=== PATIENT | female | born 1955 | race Caucasian/White ===

== ENCOUNTER → 2019-12-05 | Outpatient (CLI) | payer MEDICARE, OTHER ==
--- NOTE | 2019-12-06 02:00 | REP ---
REASON: Low back pain. Three AP and lateral views were obtained. There is degenerative disc space narrowing seen at L3-4 through L5-S1 inclusive, which is moderate. Minimal anterior lipping is seen at every level. There is a slight grade 1 potential superior endplate compression seen involving L2. There is tiny partial syndesmophyte formation seen bilaterally L3-4 through L5-S1. IMPRESSION: 1. Degenerative discogenic change, as described above. 2. Age-undetermined possible slight grade 1 superior endplate compression L2. Electronically Signed by Harshad So DO 12/06/2019 11:09 A
== END ==
LOC: M ADAMS 15:56
PROVIDERS: ATTEND Physician Assistant
DX: M54.5 Low back pain (principal)

== ENCOUNTER → 2020-11-06 | Outpatient (CLI) | payer MEDICARE, OTHER ==
--- NOTE | 2020-11-06 09:48 | REPMRS ---
Patient History The patient states she has not had a clinical breast exam in over a year. Patient is postmenopausal and has history of cancer in the left breast at age 51. Family history of breast cancer at age 55 in maternal aunt. No Hormone Replacement Therapy Patient states no breast complaints today. Patient has signed MRS History Sheet. Digital Woman Screen Mammo: November 06, 2020 - Exam #: [id number] Bilateral CC and MLO view(s) were taken. Technologist: Betty Westfall, Nurse Practitioner Manager FINDINGS: There are scattered fibroglandular densities. Screening. Digital screening (2D) mammography was performed bilaterally in the CC and MLO projections. Additionally, breast tomosynthesis (3D mammography) was performed bilaterally in the CC and MLO projections. Todays exam was compared to the prior exams.There are no prior DBT images for comparison. By history, the patient has no complaints of a palpable breast abnormality or other significant breast complaints. The breasts are unchanged in size and shape. There are no trav-soft tissue densities or spiculated masses. There is no internal architectural distortion. Once again, stable benign appearing calcifications are seen.There are no suspicious trav-calcific clusters. Skin thickening or nipple retraction is not present. IMPRESSION: BI-RADS Category 2- Benign Findings. There is no evidence of malignant alteration of the breasts. Followup examination recommended in one year. The Volpara volumetric breast density category is B, there are scattered areas of fibroglandular density. This mammogram was read with the assistance of mobiDEOS,an FDA approved computer aided detection system for mammography. Negative x-ray reports should not delay surgical consultation if a dominant or clinically suspicious mass is present. Not all breast cancers can be identified by mammography. Therefore, we recommend that you continue to perform regular breast self-examination and physical examination and then promptly contact your physician of any concerns or changes. Adenosis and dense breasts may obscure an underlying neoplasm. Assessment: BI-RADS/ACR category 2 mammogram. Benign Findings. Recommendation Routine screening mammogram of both breasts in 1 year. Electronically Signed By: Harshad So DO 11/06/20 0925
--- NOTE | 2020-11-06 10:04 | DEXAMM ---
INDICATION: M85.80 [facility] DISRD OF BONE DENSITY AND STRUCTURE. COMPARISON: 04/18/2011 as well as other prior exams. TECHNIQUE: Bone density was measured using dual-energy x-ray absorptiometry (DEXA). FINDINGS: AP SPINE L1-L4 BMD 0.920 g/cm2 Young Adult T-Score -2.2 Age Matched Z-Score -0.5. LT FEMUR, TOTAL BMD 0.872 g/cm2 Young Adult T-Score -1.1 Age Matched Z-Score 0.2. LT NECK BMD 0.808 g/cm2 Young Adult T-Score -1.7 Age Matched Z-Score -0.1. RT FEMUR, TOTAL BMD 0.887 g/cm2 Young Adult T-Score -1.0 Age Matched Z-Score 0.3. RT NECK BMD 0.809 g/cm2 Young Adult T-Score -1.6 Age Matched Z-Score -0.1. IMPRESSION: There is low bone density of the spine. There is low bone density of the left hip. There is low bone density of the right hip. The density of the spine has decreased 12.2% since the initial exam on 01/16/2004. The density of the spine decreased 10.3% since most recent exam on 04/18/2011. The density of the left hip has decreased 8.8% since initial exam on 01/16/2004. The density of the left hip has decreased 6.2% since most recent exam on 04/18/2011. The density of the right hip has decreased 11.1% since the initial exam on 01/16/2004. The density of the right hip has decreased 9.9% since the most recent exam on 04/18/2011. FOLLOW-UP: Recommendation for the next bone density exam: 2 years. <Electronically signed by Robert Grossman > 11/06/20 1000
== END ==
LOC: M WHC 07:51
PROVIDERS: ATTEND Family Medicine
DX: Z12.31 Encounter for screening mammogram for malignant neoplasm of breast (principal); M85.88 Other specified disorders of bone density and structure, other site; M85.851 Other specified disorders of bone density and structure, right thigh; M85.852 Other specified disorders of bone density and structure, left thigh; Z85.3 Personal history of malignant neoplasm of breast

== ENCOUNTER → 2021-05-06 | Outpatient (CLI) | payer MEDICARE, OTHER ==
--- NOTE | 2021-05-06 10:01 | REP ---
INDICATION: SMOKER. COMPARISON: CXR 01/06/2017, CT 10/17/2010. TECHNIQUE: Standard low-dose lung screening CT protocol. FINDINGS: Lung law are well inflated. Calcified granuloma in the anterior segment right upper lobe on image 45, unchanged. There is a large densely calcified granuloma in the left lower lobe medial basal segment with some curvilinear fibrotic change extending from it to the pleura, stable. Laterally in the right lower lobe on image 57 is another calcified granuloma, unchanged. Some curvilinear fibrosis is seen in the posterior basal segment of the right lower lobe unchanged. On image 30 in the right upper lobe laterally is a 6.9 x 4.7 mm noncalcified nodule which is new. No pleural plaque or calcified plaque, effusion, acute infiltrate, parenchymal mass or pneumothorax. IMPRESSION: Lung RADS category 4A, suspicious. Findings for which additional diagnostic testing is recommended. There is a new 6.9 x 4.7 mm noncalcified nodule in the right upper lobe on image 30 and with this previously clear region from a remote CT, additional imaging with a full chest CT (with contrast if possible) recommended. Patients with this category of findings have 15% or greater chance of malignancy at the time of the examination. <Electronically signed by Francisco Watson > 05/06/21 [id number]
== END ==
LOC: M RAD 08:49
PROVIDERS: ATTEND Family Medicine
DX: Z12.2 Encounter for screening for malignant neoplasm of respiratory organs (principal); F17.218 Nicotine dependence, cigarettes, with other nicotine-induced disorders

== ENCOUNTER → 2021-05-17 | Outpatient (CLI) | payer MEDICARE, OTHER ==
[~2021-05-17] MED LIST: ISOVUE-370 76% 100ML VIAL ONE
--- NOTE | 2021-05-17 14:26 | REP ---
INDICATION: LUNG NODULE COMPARISON: Multiple the latest 05/06/2021 a low-dose screening CT of the lungs the latest prior standard CT of the chest using helical technique was obtained 10/17/2010 TECHNIQUE: Standard helical technique after the intravenous administration of 100 cc Isovue 370 FINDINGS: There is no mediastinal or hilar adenopathy. There are no pleural or pericardial effusions. The imaged upper abdomen shows a partially imaged right renal cystic structure which measures a least 2.3 cm. The imaged osseous structures are within normal limits. Evaluation of the lung law shows a smoothly marginated 5 mm size nodule in the right upper lobe situated between 2 vessels. There are multiple parenchymal calcifications status quo. These are consistent with calcified granulomas and a calcified hamartoma in the left lower lobe. No new abnormal nodules, masses, or opacities have developed. There are stable curvilinear bibasilar densities consistent with chronic fibrotic and/or subsegmental atelectatic changes. IMPRESSION: 1. Right upper lobe nodule as described above. According to the revised Fleischner society criteria this represents a category 3 nodule for which a six-month follow-up CT chest is recommended. 2. Partially imaged right renal cystic structure for which complete evaluation is recommended with pre and postcontrast enhanced renal CT. 3. Other findings as described. <Electronically signed by Harshad So > 05/17/21 [id number]
== END ==
LOC: M PLAIMG 12:25
PROVIDERS: ATTEND Family Medicine
DX: R91.1 Solitary pulmonary nodule (principal); N28.1 Cyst of kidney, acquired
CPT/HCPCS: 71260; Q9967

== ENCOUNTER → 2021-06-03 | Outpatient (CLI) | payer MEDICARE, OTHER ==
--- NOTE | 2021-06-03 13:37 | REP ---
INDICATION: RT RENAL CYST. COMPARISON: None. TECHNIQUE: Real-time sonographic evaluation of the kidneys is performed. FINDINGS: Renal cortical echogenicity pattern is normal bilaterally and contours are smooth. There is no hydronephrosis bilaterally. There is a simple anechoic cyst in the mid right kidney measuring 2.8 x 2.1 x 2.3 cm. The right kidney measures 9.8 x 4.3 x 3.9 cm. Left renal dimensions are 11.1 x 4.8 x 5.8 cm. Urinary bladder is empty. IMPRESSION: Benign right renal cyst with a maximum diameter of 2.8 cm. No hydronephrosis. <Electronically signed by Robert Grossman > 06/03/21 [id number]
== END ==
LOC: M RAD 12:53
PROVIDERS: ATTEND Family Medicine
DX: N28.1 Cyst of kidney, acquired (principal)

== ENCOUNTER → 2021-11-13 | Outpatient (CLI) | payer MEDICARE, OTHER | LOC: M PLAIMG 08:39 | PROVIDERS: ATTEND Family Medicine | DX: R91.1 Solitary pulmonary nodule (principal) | CPT/HCPCS: 71260; Q9967 ==

== ENCOUNTER → 2022-06-20 | Outpatient (CLI) | payer MEDICARE, OTHER | LOC: M WHC 08:51 | PROVIDERS: ATTEND Family Medicine | DX: Z12.31 Encounter for screening mammogram for malignant neoplasm of breast (principal) ==

== ENCOUNTER → 2022-11-12 | Outpatient (CLI) | payer MEDICARE, OTHER | LOC: M WUC 11:28 | PROVIDERS: ATTEND Family Medicine | DX: M54.14 Radiculopathy, thoracic region (principal) ==

== ENCOUNTER 2023-02-02 06:58 | Inpatient (IN) | payer MEDICARE, OTHER ==
[~2023-02-02] VITALS: Ht 152.4 cm; Wt 72.3 kg
[2023-02-02] MEDS ORDERED: CETI-24 (07:08)
[2023-02-02] MEDS ORDERED: ATOR1TAB19 (07:08)
[2023-02-02 08:13] LABS: BASO # 0.1 10^3/uL (0.0-0.2); BASO % 0.6 % (0.0-1.0); EOS # 0.1 10^3/uL (0.0-0.5); EOS % 0.9 % (0.0-3.0); HEMATOCRIT 34.2 % (36.0-47.0); HEMOGLOBIN 10.9 g/dl (12.0-15.5); LYMPH % 18.8 % (24.0-44.0); MEAN CORPUSCULAR HEMOGLOBIN 29.9 pg (27.0-33.0); MEAN CORPUSCULAR HGB CONC 31.9 g/dl (32.0-36.5); MONO # 1.3 10^3/uL (0.0-0.8); MONO % 12.5 % (2.0-8.0); NEUTROPHILS % 66.6 % (36.0-66.0); PLATELET COUNT, AUTOMATED 505 10^3/uL (150-450); RED BLOOD COUNT 3.64 10^6/uL (4.00-5.40); WHITE BLOOD COUNT 10.5 10^3/uL (4.0-10.0)
[2023-02-02 08:44] LABS: CK-MB VALUE MASS < 1.0 NG/ML (<3.6)
[2023-02-02] MEDS ORDERED: IPRATROPIUM 0.5MG/ALBUTEROL 2.5MG INH SOL UD 3ML (DUONEB) NEB ONE (08:45)
[2023-02-02] MEDS ORDERED: ALBUTEROL SULFATE 2.5MG/0.5ML INH NEB SOLN INH ONE (08:45)
[2023-02-02 08:47] LABS: ALBUMIN 2.7 G/DL (3.2-5.2); ALKALINE PHOSPHATASE 158 U/L (46-116); ALT/SGPT 98 U/L (7.0-40); AST/SGOT 102 U/L (<34); BILIRUBIN,DIRECT 0.1 MG/DL (<0.4); BILIRUBIN,TOTAL 0.3 MG/DL (0.3-1.2); BLOOD UREA NITROGEN 15 MG/DL (9-23); CALCIUM LEVEL 8.4 MG/DL (8.3-10.6); CARBON DIOXIDE LEVEL 28 MMOL/L (20-31); CHLORIDE LEVEL 103 MMOL/L (98-107); CREATININE FOR GFR 0.56 MG/DL (0.55-1.30); GLOMERULAR FILTRATION RATE > 60.0 (>45); GLUCOSE, FASTING 126 MG/DL (74-106); POTASSIUM SERUM 4.4 MMOL/L (3.5-5.1); SODIUM LEVEL 138 MMOL/L (136-145); TOTAL PROTEIN 6.7 G/DL (5.7-8.2)
[2023-02-02 08:48] LABS: THYROID STIMULATING HORMONE 1.509 uIU/ML (0.55-4.78); THYROXINE (T4) 7.3 UG/DL (4.5-10.9)
[2023-02-02 08:49] LABS: CPK CREATINE PHOSPHOKINASE 67 U/L (34-145); MB/CK RELATIVE INDEX 1.49 (< OR =4)
[2023-02-02] MEDS ORDERED: predniSONE 20 MG TAB PO SCH (09:00)
[2023-02-02 09:23] VITALS: O2SAT 95
[2023-02-02 10:00] LABS: CK-MB VALUE MASS < 1.0 NG/ML (<3.6)
[2023-02-02 10:01] LABS: CPK CREATINE PHOSPHOKINASE 57 U/L (34-145); MB/CK RELATIVE INDEX 1.75 (< OR =4)
[2023-02-02] MEDS ORDERED: methylPREDNISolone 125MG 2ML VIAL IV ONE (12:00)
[2023-02-02] MEDS ORDERED: FUROSEMIDE 40MG/4ML VIAL IV ONE (12:00)
[2023-02-02] MEDS ORDERED: MED REC IN PROGRESS XX SCH (12:50)
[2023-02-02] MEDS ORDERED: LEVALBUTEROL HFA 45MCG/ACT 15GM INHALER INH PRN (14:50)
[2023-02-02 15:36] LABS: PROCALCITONIN 0.04 ng/ml
[2023-02-02] MEDS ORDERED: cefTRIAXone SOD 1 GM in D5W MINI-BAG PLUS 50 ML IV SCH (16:00)
[2023-02-02 16:48] VITALS: BP 124/71; TEMP 97; O2SAT 93
[2023-02-02] MEDS: AZITHROMYCIN 250MG TABLET PO SCH (18:02)
[2023-02-02] MEDS: FUROSEMIDE 20MG/2ML VIAL IV SCH (18:02)
[2023-02-02 19:40] VITALS: BP 104/54; TEMP 97.3; O2SAT 91
[2023-02-02] MEDS: IPRATROPIUM HFA INHALER 12.9 GRAMS (ATROVENT HFA) INH SCH (20:02)
[2023-02-02] MEDS ORDERED: CETI-24 PO (20:45)
[2023-02-02] MEDS ORDERED: ATOR1TAB19 PO (20:45)
[2023-02-02] MEDS ORDERED: HOME MED LIST COMPLETE! XX SCH (20:50)
[2023-02-02 23:37] VITALS: BP 97/55; TEMP 97.3; O2SAT 93
[2023-02-03] MEDS: IPRATROPIUM HFA INHALER 12.9 GRAMS (ATROVENT HFA) INH SCH ×3 (01:12→14:22)
[2023-02-03 03:50] VITALS: BP 101/56; TEMP 97.2; O2SAT 92
[2023-02-03 06:08] LABS: HEMATOCRIT 33.8 % (36.0-47.0); HEMOGLOBIN 10.9 g/dl (12.0-15.5); MEAN CORPUSCULAR HEMOGLOBIN 29.8 pg (27.0-33.0); MEAN CORPUSCULAR HGB CONC 32.2 g/dl (32.0-36.5); MEAN CORPUSCULAR VOLUME 92.3 fl (80.0-96.0); PLATELET COUNT, AUTOMATED 505 10^3/uL (150-450); RED BLOOD COUNT 3.66 10^6/uL (4.00-5.40); WHITE BLOOD COUNT 10.4 10^3/uL (4.0-10.0)
[2023-02-03 06:33] LABS: ALBUMIN 2.5 G/DL (3.2-5.2); ALKALINE PHOSPHATASE 136 U/L (46-116); ALT/SGPT 75 U/L (7.0-40); AST/SGOT 52 U/L (<34); BILIRUBIN,TOTAL 0.2 MG/DL (0.3-1.2); BLOOD UREA NITROGEN 25 MG/DL (9-23); CALCIUM LEVEL 8.5 MG/DL (8.3-10.6); CARBON DIOXIDE LEVEL 32 MMOL/L (20-31); CHLORIDE LEVEL 101 MMOL/L (98-107); CREATININE FOR GFR 0.65 MG/DL (0.55-1.30); GLOMERULAR FILTRATION RATE > 60.0 (>45); GLUCOSE, FASTING 120 MG/DL (74-106); POTASSIUM SERUM 4.6 MMOL/L (3.5-5.1); SODIUM LEVEL 141 MMOL/L (136-145); TOTAL PROTEIN 6.4 G/DL (5.7-8.2)
[2023-02-03 08:15] VITALS: BP 102/51; TEMP 96.5; O2SAT 94
[2023-02-03 08:51] LABS: HEPATITIS B CORE ANTIBODY IGM NEGATIVE (NEGATIVE); HEPATITIS C VIRUS ABY INDEX 0.17 INDEX (<0.8)
[2023-02-03] MEDS: AZITHROMYCIN 250MG TABLET PO SCH (08:59)
[2023-02-03] MEDS: FUROSEMIDE 20MG/2ML VIAL IV SCH (08:59)
[2023-02-03] MEDS ORDERED: ENOXAPARIN 40MG/0.4ML SYRINGE (J1650 PER 10MG) SC SCH (09:00)
[2023-02-03] MEDS ORDERED: predniSONE 20 MG TAB PO SCH (09:00)
[2023-02-03] MEDS ORDERED: FARX1TAB3 PO (11:11)
[2023-02-03] MEDS ORDERED: FURO40TA2 PO (11:11)
[2023-02-03 12:32] VITALS: BP 107/59; TEMP 96.3; O2SAT 90
[2023-02-05 15:08] LABS: BODY FLUID CULTURE Not indicated. (.); LEGIONELLA ANTIGEN URINE Negative (Negative); ORGANISM ID Not indicated. (.); SPECIMEN SOURCE Urine (.); URINE STREP PNEUMONIAE ANTIGEN Negative (Negative)
== END 2023-02-03 15:56 | disposition home or self-care (01) | DRG 189 ==
LOC: M ED 06:58 → M ED INP 14:03 → M PCU 16:35
PROVIDERS: ADMIT Internal Medicine; ATTEND Internal Medicine
DX: J96.01 Acute respiratory failure with hypoxia (principal); J18.9 Pneumonia, unspecified organism; I50.21 Acute systolic (congestive) heart failure; J45.909 Unspecified asthma, uncomplicated; R74.01 Elevation of levels of liver transaminase levels; E78.00 Pure hypercholesterolemia, unspecified; R91.8 Other nonspecific abnormal finding of lung field; R59.0 Localized enlarged lymph nodes; E27.8 Other specified disorders of adrenal gland; Z85.828 Personal history of other malignant neoplasm of skin; K76.1 Chronic passive congestion of liver; Z79.899 Other long term (current) drug therapy

== ENCOUNTER → 2023-07-10 | Outpatient (CLI) | payer MEDICARE, OTHER ==
[~2023-07-10] MED LIST changes: +ATOR1TAB19; +ATOR1TAB19 PO; +CETI-24; +CETI-24 PO; +FARX1TAB3 PO; +FURO40TA2 PO; -ISOVUE-370 76% 100ML VIAL ONE
== END ==
LOC: M WUC 09:07
PROVIDERS: ATTEND Nurse Practitioner Family
DX: M54.50 Low back pain, unspecified (principal)

== ENCOUNTER → 2023-09-21 | Outpatient (REF) | payer MEDICARE, OTHER | LOC: M LAB REF 11:35 | PROVIDERS: ATTEND Family Medicine | DX: J44.9 Chronic obstructive pulmonary disease, unspecified (principal); I50.9 Heart failure, unspecified ==

== ENCOUNTER → 2023-11-12 | Outpatient (CLI) | payer MEDICARE, OTHER | LOC: M WHC 10:23 | PROVIDERS: ATTEND Family Medicine | DX: Z12.31 Encounter for screening mammogram for malignant neoplasm of breast (principal); Z85.3 Personal history of malignant neoplasm of breast ==

== ENCOUNTER → 2023-12-03 | Outpatient (CLI) | payer MEDICARE, OTHER | LOC: M SOG 07:54 | PROVIDERS: ATTEND Physician Assistant | DX: M51.36 Other intervertebral disc degeneration, lumbar region (principal); M51.34 Other intervertebral disc degeneration, thoracic region; M85.88 Other specified disorders of bone density and structure, other site; M54.50 Low back pain, unspecified ==

== ENCOUNTER → 2024-01-13 | Outpatient (CLI) | payer MEDICARE, OTHER | LOC: M PLAIMG 14:33 | PROVIDERS: ATTEND Physician Assistant | DX: M54.41 Lumbago with sciatica, right side (principal); M47.896 Other spondylosis, lumbar region ==

== ENCOUNTER → 2024-09-20 | Outpatient (REF) | payer MEDICARE, OTHER | LOC: M LAB REF 12:11 | PROVIDERS: ATTEND Family Medicine | DX: I50.22 Chronic systolic (congestive) heart failure (principal) ==

== ENCOUNTER 2025-04-25 09:55 | Inpatient (IN) | payer MEDICARE, OTHER ==
[~2025-04-25] VITALS: Ht 152.4 cm; Wt 86.3 kg
[2025-04-25] MEDS ORDERED: SERT-141 PO (12:20)
[2025-04-25] MEDS ORDERED: ENTR1TAB7 PO (12:22)
[2025-04-25] MEDS ORDERED: CARV3.12 PO (12:22)
[2025-04-25] MEDS ORDERED: TREL1AER PO (12:22)
[2025-04-25 14:07] LABS: BASO # 0.0 10^3/uL (0.0-0.2); BASO % 0.5 % (0.0-1.0); EOS # 0.3 10^3/uL (0.0-0.5); EOS % 3.3 % (0.0-3.0); LYMPH # 2.1 10^3/uL (1.5-5.0); LYMPH % 24.2 % (24.0-44.0); MONO # 1.4 10^3/uL (0.0-0.8); MONO % 16.0 % (2.0-8.0); NEUTROPHILS # 4.9 10^3/uL (1.5-8.5); NEUTROPHILS % 55.7 % (36.0-66.0); PLATELET COUNT, AUTOMATED 529 10^3/uL (150-450)
[2025-04-25 14:10] VITALS: O2SAT 97
[2025-04-25 14:29] LABS: CALCIUM LEVEL 9.2 MG/DL (8.3-10.6); CARBON DIOXIDE LEVEL 32 MMOL/L (20-31); CHLORIDE LEVEL 98 MMOL/L (98-107); CREATININE FOR GFR 0.61 MG/DL (0.55-1.30); GLOMERULAR FILTRATION RATE > 90.0 (>39); POTASSIUM SERUM 4.6 MMOL/L (3.5-5.1); SODIUM LEVEL 138 MMOL/L (136-145)
[2025-04-25] MEDS ORDERED: VENTAER INH (15:25)
[2025-04-25] MEDS ORDERED: ALBU2.5V10 INH (15:25)
[2025-04-25] MEDS ORDERED: FLUT1BLS8 INH (15:25)
[2025-04-25] MEDS ORDERED: VITA100093 PO (15:25)
[2025-04-25] MEDS ORDERED: FURO40TA2 PO (15:25)
[2025-04-25] MEDS ORDERED: VITA-198 PO (15:25)
[2025-04-25] MEDS ORDERED: HOME MED LIST COMPLETE! XX SCH (15:30)
[2025-04-25] MEDS: FUROSEMIDE 40 MG/4 ML VIAL IV ONE (15:58)
[2025-04-25] MEDS ORDERED: ALBUTEROL 90 MCG/ACT 8 GM HFA INHALER INH PRN (16:25)
[2025-04-25] MEDS ORDERED: FUROSEMIDE 40 MG/4 ML VIAL IV SCH (17:00)
[2025-04-25] MEDS: ATORVASTATIN 10 MG TAB PO SCH (20:12)
[2025-04-25] MEDS: ADVAIR HFA 230/21 MCG INHALER INH SCH (20:17)
[2025-04-25 20:40] VITALS: BP 125/56; TEMP 97.8; O2SAT 93
[2025-04-25 23:35] VITALS: BP 111/55; TEMP 98.4; O2SAT 94
[2025-04-26 03:40] VITALS: BP 115/56; TEMP 98.2; O2SAT 95
[2025-04-26 05:42] LABS: PLATELET COUNT, AUTOMATED 504 10^3/uL (150-450)
[2025-04-26 06:12] LABS: ALT/SGPT 32 U/L (7.0-40); AST/SGOT 34 U/L (<34); CALCIUM LEVEL 8.3 MG/DL (8.3-10.6); CARBON DIOXIDE LEVEL 34 MMOL/L (20-31); CHLORIDE LEVEL 96 MMOL/L (98-107); CREATININE FOR GFR 0.58 MG/DL (0.55-1.30); GLOMERULAR FILTRATION RATE > 90.0 (>39); POTASSIUM SERUM 4.4 MMOL/L (3.5-5.1); SODIUM LEVEL 137 MMOL/L (136-145)
[2025-04-26] MEDS: TIOTROPIUM BROM 2.5MCG/ACTUATION 4GM INH INH SCH (07:47)
[2025-04-26] MEDS: ALBUTEROL SULFATE 2.5 MG/0.5 ML INH CONCENTRATE NEB SOLN INH SCH (07:48)
[2025-04-26 08:08] VITALS: BP 143/63; TEMP 97.2; O2SAT 94
[2025-04-26] MEDS: FUROSEMIDE 40 MG/4 ML VIAL IV SCH (09:00)
[2025-04-26] MEDS: VITAMIN D 1,000 INTERNATIONAL UNITS TABLET PO SCH (09:51)
[2025-04-26] MEDS: ENOXAPARIN 40 MG/0.4 ML SYRINGE (J1650 PER 10MG) SC SCH (09:51)
[2025-04-26] MEDS: ASCORBIC ACID 500 MG TAB PO SCH (09:54)
[2025-04-26] MEDS: SERTRALINE HCL 50 MG TAB PO SCH (09:54)
[2025-04-26 11:44] VITALS: BP 122/60; TEMP 96.9; O2SAT 91
[2025-04-26] MEDS: ACETAMINOPHEN 325 MG TAB PO PRN (14:53)
[2025-04-26 16:15] VITALS: BP 118/59; TEMP 97; O2SAT 95
[2025-04-26 19:41] VITALS: BP 115/57; TEMP 97.3; O2SAT 93
[2025-04-27] VITALS (7 sets, daily range): BP systolic 107–143; BP diastolic 56–64; TEMP 97.4–98.4; O2SAT 93–96
[2025-04-27 06:12] LABS: PLATELET COUNT, AUTOMATED 521 10^3/uL (150-450)
[2025-04-27 06:42] LABS: CALCIUM LEVEL 8.5 MG/DL (8.3-10.6); CARBON DIOXIDE LEVEL 32 MMOL/L (20-31); CHLORIDE LEVEL 100 MMOL/L (98-107); CREATININE FOR GFR 0.57 MG/DL (0.55-1.30); GLOMERULAR FILTRATION RATE > 90.0 (>39); MAGNESIUM LEVEL 1.9 MG/DL (1.8-2.4); POTASSIUM SERUM 4.8 MMOL/L (3.5-5.1); SODIUM LEVEL 141 MMOL/L (136-145)
[2025-04-27] MEDS: FUROSEMIDE 20 MG/2 ML VIAL IV ONE ×2 (09:17→18:59)
[2025-04-28 03:52] VITALS: BP 124/58; TEMP 98.7; O2SAT 93
[2025-04-28 05:23] LABS: PLATELET COUNT, AUTOMATED 498 10^3/uL (150-450)
[2025-04-28 05:49] LABS: CALCIUM LEVEL 7.8 MG/DL (8.3-10.6); CARBON DIOXIDE LEVEL 34 MMOL/L (20-31); CHLORIDE LEVEL 97 MMOL/L (98-107); CREATININE FOR GFR 0.56 MG/DL (0.55-1.30); GLOMERULAR FILTRATION RATE > 90.0 (>39); POTASSIUM SERUM 4.5 MMOL/L (3.5-5.1); SODIUM LEVEL 136 MMOL/L (136-145)
[2025-04-28 08:40] VITALS: BP 114/54
[2025-04-28] MEDS ORDERED: FURO20TA2 PO (10:46)
[2025-04-28 11:21] VITALS: BP 118/58; TEMP 97.4; O2SAT 95
== END 2025-04-28 13:01 | disposition home or self-care (01) | DRG 292 ==
LOC: M ED 09:55 → M ED INP 09:56 → M PCU 20:34 → OBSVTOIN 04-26 10:25
PROVIDERS: ADMIT Internal Medicine; ATTEND Family Medicine
DX: I50.23 Acute on chronic systolic (congestive) heart failure (principal); J96.11 Chronic respiratory failure with hypoxia; J44.9 Chronic obstructive pulmonary disease, unspecified; F39 Unspecified mood [affective] disorder; E78.5 Hyperlipidemia, unspecified; E55.9 Vitamin D deficiency, unspecified; Z99.81 Dependence on supplemental oxygen; Z79.899 Other long term (current) drug therapy

== ENCOUNTER → 2025-05-02 | Outpatient (CLI) | payer MEDICARE, OTHER ==
[~2025-05-02] MED LIST changes: +ALBU2.5V10 INH; +CARV3.12 PO; +ENTR1TAB7 PO; +FLUT1BLS8 INH; +FURO20TA2 PO; +SERT-141 PO; +TREL1AER PO; +VENTAER INH; +VITA-198 PO; +VITA100093 PO
== END ==
LOC: M WUC 10:33
DX: R06.09 Other forms of dyspnea (principal); J84.9 Interstitial pulmonary disease, unspecified; R91.8 Other nonspecific abnormal finding of lung field

== ENCOUNTER → 2025-05-02 | Outpatient (REF) | payer MEDICARE, OTHER | LOC: M LAB REF 11:59 | DX: I50.32 Chronic diastolic (congestive) heart failure (principal) ==

== ENCOUNTER → 2025-05-08 | Outpatient (CLI) | payer MEDICARE, OTHER | LOC: M WUC 10:23 | DX: R06.00 Dyspnea, unspecified (principal); J84.9 Interstitial pulmonary disease, unspecified ==